=== PATIENT | male | born 1955 | race Asian ===

== ENCOUNTER 2018-12-21 22:38 | Emergency (ER) | payer OTHER ==
[2018-12-21 23:02] VITALS: BP 160/93; PULSE 76; TEMP 98.3; BMI 32.1
[2018-12-21 23:11] LABS: URINE APPEARANCE CLEAR; URINE BILIRUBIN NEGATIVE (NEGATIVE); URINE COLOR YELLOW; URINE GLUCOSE (UA) NEGATIVE (NEGATIVE); URINE KETONE NEGATIVE (NEGATIVE); URINE PROTEIN NEGATIVE (NEGATIVE)
[2018-12-21 23:12] LABS: URINE LEUK ESTERASE NEGATIVE (NEGATIVE); URINE NITRITE NEGATIVE (NEGATIVE); URINE UROBILINOGEN 0.2 (0.2-1.0)
--- NOTE | 2018-12-21 23:31 | PDOC ---
Documentation entered by Carmella Garcia SCRIBE, acting as scribe for Paty Greene MD. Paty Greene MD: This documentation has been prepared by the Radha cherry Brenda, SCRIBE, under my direction and personally reviewed by me in its entirety. I confirm that the documentation accurately reflects all work , treatment, procedures, and medical decision making performed by me. History of Present Illness - General Chief Complaint: Pain, Acute Stated Complaint: RLQ PAIN/DIFFICULTY URINATING History Source: Patient Exam Limitations: No Limitations - History of Present Illness Initial Comments: 12/21/18 23:29 The patient is a 63 year old male, with a significant PMH of recrurring abscess who presents to the emergency department with difficulty urinating since this afternoon. As per patient, he was having difficulty urinating and was urinating in small amounts, at which times he felt pressure and discomfort. Patient notes urinating while in the ED, at which time the pressure feeling went away. The patient denies chest pain, shortness of breath, headache and dizziness. Denies fever, chills, nausea, vomiting, diarrhea and constipation .Denies dysuria and hematuria. PAST MEDICAL HISTORY: no significant history PAST SURGICAL HISTORY: no significant history FAMILY HISTORY: no pertinent history SOCIAL HISTORY: Pt lives with family and is employed. Travels to [place] often. MEDICATIONS: reviewed ALLERGIES: As per nursing notes PCP: Diana Sams General: No fevers or chills, no weakness, no weight loss HEENT: No change in vision. No sore throat,. No ear pain CardioVascular: No chest pain or shortness of breath Respiratory:No cough, or wheezing. Gastrointestinal: no nausea, vomiting, diarrhea or constipation, No rectal bleeding Genitourinary: (+) Difficulty urinating. (+) Pressure when urinating. No dysuria, hematuria. Musculoskeletal: No joint or muscle pain or swelling Neurologic: No headache, vertigo, dizziness or loss of consciousness Psychiatric: nor depression Skin: No rashes or easy bruising Endocrine: no increased thirst or abnormal weight change Allergic: no skin or latex allergy All other systems reviewed and normal General: Well-nourished well-developed individual, no acute distress HEENT: Throat: Normal, tonsils normal, no erythema or exudate Neck: Supple, no meningeal signs, no lymphadenopathy Eyes::Pupils equal reactive and round, extraocular motion intact Chest: Nontender to palpation Cardiac: S1-S2 normal, regular rate and rhythm, no murmurs rubs or gallops Respiratory: Lungs clear to auscultation bilateral Abdomen: Soft, nondistended, normal bowel sounds, nontender to palpation diffusely Extremities: Warm, dry, no cyanosis, clubbing, or edema Skin: No rashes Neuro: Alert and oriented x3, nonfocal exam, grossly intact, normal gait Psych: Normal mood and affect 12/21/18 23:53 Assessment and plan: This is 63-year-old male who comes in complaining of some lower abdominal discomfort with urination. Patient said he these only been able to urinate a small amount. Patient however did urinate here in the emergency room and give us a urine specimen and after he urinated a symptoms completely resolved. Patient's uric was negative for white cells or red cells bacteria or anything abnormal. Patient was observed in the emergency room for approximately one hour his exam was repeated and was still normal with no tenderness and no complaints of discomfort. Patient was discharged home will follow-up with his primary care doctor. Past History - Past Medical History Allergies/Adverse Reactions: Allergies Allergy/AdvReac Type Severity Reaction Status Date / Time No Known Allergies Allergy Verified 12/21/18 22:54 Home Medications: Ambulatory Orders NK [No Known Home Medication] 12/21/18 - Suicide/Smoking/Psychosocial Hx Smoking History: Never smoked Hx Alcohol Use: No *Physical Exam - Vital Signs Last Vital Signs Temp Pulse Resp BP Pulse Ox 98.3 F 76 18 160/93 98 12/21/18 22:59 12/21/18 22:59 12/21/18 22:59 12/21/18 22:59 12/21/18 22:59 ED Treatment Course - ADDITIONAL ORDERS Additional order review: Laboratory Results 12/21/18 23:00 Urine Color Yellow Urine Appearance Clear Urine pH 5.0 Ur Specific [place] 1.025 Urine Protein Negative Urine Glucose (UA) Negative Urine Ketones Negative Urine Blood Negative Urine Nitrite Negative Urine Bilirubin Negative Urine Urobilinogen 0.2 Ur Leukocyte Esterase Negative *DC/Admit/Observation/Transfer Diagnosis at time of Disposition: Abdominal pain Qualifiers: Abdominal location: right lower quadrant Qualified Code(s): R10.31 - Right lower quadrant pain - Discharge Dispostion Disposition: HOME Condition at time of disposition: Stable Decision to Admit order: No - Referrals - Patient Instructions Additional Instructions: It is important that you call your primary care doctor in the morning and follow -up with your doctor. Return to the emergency department immediately with ANY new, persistent or worsening symptoms. Continue any medications as previously prescribed by your physician. You should follow up with your primary doctor as soon as possible regarding today's emergency department visit. . Please make sure your doctor reviews the results of your emergency evaluation. Thank you for coming to the Emergency Department today for your care. It was a pleasure to see you today. Please note that your evaluation is INCOMPLETE until you follow-up with your doctor. - Post Discharge Activity
== END 2018-12-21 23:40 | disposition home or self-care (01) ==
LOC: FER 22:38
DX: R10.31 Right lower quadrant pain (principal)
CPT/HCPCS: 81003; 87086; 99281-25